=== PATIENT | female | born 1950 | race African-American/Black ===

== ENCOUNTER 2022-03-01 07:19 | Observation (INO) ==
[2022-03-01] MEDS ORDERED: DILTIAZEM 25 MG/5 ML VIAL IV ONE (07:45)
[2022-03-01] MEDS ORDERED: DILTIAZEM 25 MG/5 ML VIAL IV STA (08:10)
[2022-03-01 08:27] LABS: Calcium 9.2 MG/DL (8.5-10.1); Osmolality,Calculated 281.1 MOS/KG (273-304); Potassium 3.5 MMOL/L (3.5-5.1)
[2022-03-01] MEDS: DILTIAZEM INJ 100 MG in SODIUM CHLORIDE 0.9% 100 ML IV SCH (08:39)
[2022-03-01] MEDS ORDERED: ACETAMINOPHEN 325 MG TABLET PO PRN (11:28)
[2022-03-01] MEDS ORDERED: ONDANSETRON 4 MG/2 ML VIAL IV PRN (11:28)
[2022-03-01] MEDS ORDERED: ENOXAPARIN 40 MG/0.4 ML SYRINGE SUBCUT SCH (11:30)
[2022-03-01] MEDS ORDERED: METOPROLOL TARTRATE 5 MG/5 ML VIAL IV PRN (11:34)
[2022-03-01] MEDS ORDERED: POTASSIUM CHLORIDE 20 MEQ TABLET PO STA (11:45)
[2022-03-01] MEDS: METOPROLOL TARTRATE 25 MG TABLET PO SCH (20:12)
[2022-03-02] MEDS: DILTIAZEM INJ 100 MG in SODIUM CHLORIDE 0.9% 100 ML IV SCH (00:30)
[2022-03-02 05:49] LABS: Basophils % 0.2 % (0.0-0.8); Eosinophils % 0.2 % (0.00-10.9); Hematocrit 43.3 VOL% (35.7-47.0); Hemoglobin 13.9 GM/DL (12.0-16.0); Immature Granulocytes % 0.2 %; Immature Granulocytes Absolute 0.01 #; Lymphocytes # 1.6 10*3/uL (1.4-4.0); Lymphocytes % 34.8 % (21.3-54.2); Mean Corpuscular HGB Conc 32.1 GM/DL (32-36); Mean Corpuscular Volume 97.3 FL (87-102); Mean Platelet Volume 10.5 FL (9.6-12.0); Monocytes # 0.5 10*3/uL (0.11-0.8); Monocytes % 11.7 % (1.7-12.7); Neutrophils % 52.9 % (38.7-73.9); Platelet Count 151 T/CUMM (130-400); Red Blood Count 4.45 MC/CUMM (3.8-5.5); Red Cell Distribution Width 13.1 % (9.3-17.3); White Blood Count 4.5 T/CUMM (4-12)
[2022-03-02 06:12] LABS: Albumin 3.2 G/DL (3.4-5.0); Bilirubin,Total 0.5 MG/DL (0.20-1.00); Calcium 8.9 MG/DL (8.5-10.1); Potassium 4.4 MMOL/L (3.5-5.1); Risk Ratio 2.33; VLDL Cholesterol 9.8 MG/DL
[2022-03-02] MEDS ORDERED: ROSUVASTATIN 10 MG TABLET PO SCH (09:00)
[2022-03-02] MEDS ORDERED: amLODIPine 5 MG TABLET PO SCH (09:00)
[2022-03-02] MEDS ORDERED: PANTOPRAZOLE 40 MG TABLET PO SCH (09:00)
[2022-03-02] MEDS ORDERED: RIVAROXABAN 20 MG TABLET PO SCH (09:00)
[2022-03-02 09:08] VITALS: BP 143/75
[2022-03-02] MEDS ORDERED: METOPROLOL SUCCINATE XL 25 MG TABLET PO SCH (09:30)
[2022-03-02] MEDS: METOPROLOL TARTRATE 25 MG TABLET PO SCH (09:45)
== END 2022-03-02 16:45 | disposition home or self-care (01) ==
LOC: N.TELES 07:19 → N.ED 07:19 → N.TELES 12:42
PROVIDERS: ADMIT Internal Medicine; ATTEND Internal Medicine

== ENCOUNTER 2022-03-23 05:08 | Observation (INO) ==
[2022-03-23] MEDS ORDERED: DILTIAZEM 50 MG/10 ML VIAL IV STA (05:21)
[2022-03-23 05:26] LABS: Basophils % 0.4 % (0.0-0.8); Eosinophils % 0.2 % (0.00-10.9); Hematocrit 47.5 VOL% (35.7-47.0); Hemoglobin 15.6 GM/DL (12.0-16.0); Immature Granulocytes % 0.4 %; Immature Granulocytes Absolute 0.02 #; Lymphocytes # 1.4 10*3/uL (1.4-4.0); Lymphocytes % 29.7 % (21.3-54.2); Mean Corpuscular HGB Conc 32.8 GM/DL (32-36); Mean Corpuscular Volume 93.9 FL (87-102); Mean Platelet Volume 10.6 FL (9.6-12.0); Monocytes # 0.4 10*3/uL (0.11-0.8); Monocytes % 8.9 % (1.7-12.7); Neutrophils % 60.4 % (38.7-73.9); Platelet Count 190 T/CUMM (130-400); Red Blood Count 5.06 MC/CUMM (3.8-5.5); Red Cell Distribution Width 12.7 % (9.3-17.3); White Blood Count 4.6 T/CUMM (4-12)
[2022-03-23 05:44] LABS: Calcium 9.5 MG/DL (8.5-10.1); Potassium 4.1 MMOL/L (3.5-5.1)
[2022-03-23] MEDS ORDERED: ACETAMINOPHEN 325 MG TABLET PO PRN (08:09)
[2022-03-23] MEDS ORDERED: ONDANSETRON 4 MG/2 ML VIAL IV PRN (08:09)
[2022-03-23] MEDS ORDERED: hydrALAZINE 20 MG/1 ML VIAL IV PRN (08:09)
[2022-03-23] MEDS ORDERED: RIVAROXABAN 20 MG TABLET PO SCH (09:00)
[2022-03-23] MEDS: amLODIPine 5 MG TABLET PO SCH (09:08)
[2022-03-23] MEDS: VALSARTAN 80 MG TABLET PO SCH (09:08)
[2022-03-23] MEDS: METOPROLOL SUCCINATE XL 25 MG TABLET PO SCH ×2 (09:09→20:40)
[2022-03-23] MEDS: PANTOPRAZOLE 40 MG TABLET PO SCH (09:09)
[2022-03-23] MEDS: ROSUVASTATIN 10 MG TABLET PO SCH (20:40)
[2022-03-23] MEDS: VITAMIN E 400 UNIT CAPSULE PO SCH (20:40)
[2022-03-24 05:47] LABS: Basophils % 0.4 % (0.0-0.8); Eosinophils % 0.4 % (0.00-10.9); Hematocrit 41.4 VOL% (35.7-47.0); Hemoglobin 13.7 GM/DL (12.0-16.0); Immature Granulocytes % 0.2 %; Immature Granulocytes Absolute 0.01 #; Lymphocytes % 41.1 % (21.3-54.2); Mean Corpuscular HGB Conc 33.1 GM/DL (32-36); Mean Corpuscular Volume 95.6 FL (87-102); Monocytes # 0.5 10*3/uL (0.11-0.8); Monocytes % 9.9 % (1.7-12.7); Platelet Count 162 T/CUMM (130-400); Red Blood Count 4.33 MC/CUMM (3.8-5.5); White Blood Count 4.8 T/CUMM (4-12)
[2022-03-24 05:56] LABS: Calcium 9.1 MG/DL (8.5-10.1); Osmolality,Calculated 283.1 MOS/KG (273-304); Potassium 4.1 MMOL/L (3.5-5.1)
[2022-03-24] MEDS: METOPROLOL SUCCINATE XL 25 MG TABLET PO SCH ×2 (08:52→20:17)
[2022-03-24] MEDS: PANTOPRAZOLE 40 MG TABLET PO SCH (08:57)
[2022-03-24] MEDS: VALSARTAN 80 MG TABLET PO SCH (08:57)
[2022-03-24] MEDS: amLODIPine 5 MG TABLET PO SCH (08:57)
[2022-03-24] MEDS ORDERED: ceFAZolin 1,000 MG VIAL IRRIG ONE (14:31)
[2022-03-24] MEDS ORDERED: DIAZEPAM 5 MG TABLET PO ONE (14:31)
[2022-03-24] MEDS ORDERED: diphenhydrAMINE CAP 25 MG CAPSULE PO ONE (14:31)
[2022-03-24] MEDS ORDERED: fentaNYL 100 MCG/2 ML VIAL ONE (17:03)
[2022-03-24] MEDS ORDERED: MIDAZOLAM 2 MG/2 ML VIAL ONE (17:03)
[2022-03-24] MEDS ORDERED: ceFAZolin 1,000 MG VIAL ONE (17:03)
[2022-03-24] MEDS ORDERED: TISSUE ADHESIVE 1 EACH APPLICATOR TOP ONE (17:04)
[2022-03-24] MEDS: ROSUVASTATIN 10 MG TABLET PO SCH (20:16)
[2022-03-24] MEDS: VITAMIN E 400 UNIT CAPSULE PO SCH (20:17)
[2022-03-25 05:23] LABS: Basophils % 0.1 % (0.0-0.8); Hematocrit 40.9 VOL% (35.7-47.0); Hemoglobin 13.2 GM/DL (12.0-16.0); Immature Granulocytes % 0.3 %; Immature Granulocytes Absolute 0.02 #; Lymphocytes # 0.9 10*3/uL (1.4-4.0); Lymphocytes % 13.9 % (21.3-54.2); Mean Corpuscular HGB Conc 32.3 GM/DL (32-36); Mean Corpuscular Volume 95.6 FL (87-102); Mean Platelet Volume 10.5 FL (9.6-12.0); Monocytes # 0.7 10*3/uL (0.11-0.8); Monocytes % 9.7 % (1.7-12.7); Platelet Count 154 T/CUMM (130-400); Red Blood Count 4.28 MC/CUMM (3.8-5.5); White Blood Count 6.7 T/CUMM (4-12)
[2022-03-25 05:55] LABS: Calcium 8.2 MG/DL (8.5-10.1); Osmolality,Calculated 283.1 MOS/KG (273-304); Potassium 3.9 MMOL/L (3.5-5.1)
[2022-03-25 08:30] VITALS: BP 176/71
[2022-03-25] MEDS: amLODIPine 5 MG TABLET PO SCH (09:46)
[2022-03-25] MEDS: PANTOPRAZOLE 40 MG TABLET PO SCH (09:46)
[2022-03-25] MEDS: METOPROLOL SUCCINATE XL 25 MG TABLET PO SCH (09:46)
[2022-03-25] MEDS: VALSARTAN 80 MG TABLET PO SCH (09:46)
== END 2022-03-25 11:30 | disposition home or self-care (01) ==
LOC: N.EDINP 05:08 → N.ED 05:08 → SUATTDRO 08:09 → N.EDINP 09:20 → N.TELES 10:20
PROVIDERS: ADMIT Family Medicine; ATTEND Internal Medicine